=== PATIENT | female | born 1945 | race Caucasian/White ===

== ENCOUNTER → 2020-12-02 | Outpatient (CLI) | payer MEDICARE ==
[~2020-12-02] MED LIST: AGM875T PO; AMOX875T2; FLT05NA16 NSEACH; LOSA1TAB19
--- NOTE | 2020-12-02 17:38 | Diagnostic Imaging Report ---
PROCEDURE: CT left lower extremity without contrast. TECHNIQUE: Multiple contiguous axial images were obtained through the left lower extremity without the use of intravenous contrast. Sagittal and coronal reformations were then performed. Auto Exposure Controls were utilized during the CT exam to meet ALARA standards for radiation dose reduction. INDICATION: Foreign body. COMPARISON: None available. FINDINGS: Soft tissues: There is a 16 x 10 mm region of heterotopic ossification within the central cord of the plantar fascia. This is located at the level of the calcaneocuboid junction. No foreign body is present within the soft tissues. Type II os navicularis is noted. Bones: Moderate degenerative changes at the first MTP. No fracture or erosions. No osteochondral lesion of the talar dome. Plantar and dorsal calcaneal spurs. There is some mineralization of the distal Achilles indicative of calcific tendinosis. IMPRESSION: 1. No foreign body. 2. 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 Dictated by: Dictated on workstation # [id number]
== END ==
LOC: RAD 14:50
PROVIDERS: ATTEND Podiatrist Foot & Ankle Surgery
DX: M89.8X7 Other specified disorders of bone, ankle and foot (principal)
CPT/HCPCS: 73700